=== PATIENT | male | born 1970 | race Caucasian/White ===

== ENCOUNTER 2016-06-25 17:07 | Emergency (ER) | payer OTHER, BC, MEDICAID ==
--- NOTE | 2016-06-25 17:59 | UCPHY ---
[id number]/21/17 17:43 HPI/ROS: CHIEF COMPLAINT: Erythema to right infraorbital and nasal region HISTORY OF PRESENT ILLNESS: 46-year-old developmentally delayed male in the urgent care with his care provider who provides history. She describes 3 days of progressive erythema from what started as a central lesion in the right infraorbital/right lateral nasal area. The eye itself has remained unremarkable with no injection and no discharge. No apparent pain with extraocular movements and no proptosis that the care provider has noted. No other skin lesions to the face have been seen. PHYSICAL EXAM (Prior to examination, patient consented to physical exam, hands were washed and my usual and customary physical exam procedures followed) 1) GENERAL: Well-developed, well-nourished, alert and oriented. Appears to be in no acute distress. 2) HEAD: Normocephalic 3) HEENT: sclera anicteric. No injection. No proptosis. No abnormal gaze or apparent pain with extraocular movement 4) LUNGS: Breathing comfortably. 5) SKIN: in the right infraorbital/right lateral nasal region the patient has a central for regular lesion with surrounding erythema and induration. It does not extend onto the inferior lid. No other skin lesions or vesicles are seen. There is no dermatomal distribution of the lesions. Facial features are symmetrical. No evidence of facial palsy (Manjula,Juanita Regina) Constitutional: Initial Vital Signs Temperature (C) 36.3 C 06/25/16 17:56 Heart Rate 65 06/25/16 17:56 Respiratory Rate 16 06/25/16 17:56 Blood Pressure 103/69 06/25/16 17:56 O2 Sat (%) 97 06/25/16 17:56 O2 Delivery Mode Room Air Allergies/Adverse Reactions: caffeine Allergy (Unknown, Verified 06/25/16 17:53) chocolate Allergy (Uncoded 06/25/16 17:53) Home Medications: Medication Instructions Recorded Levothyroxin Daily 50 mcg 03/31/12 Multivitamins [Multivitamin (OTC)] 1 each PO DAILY 03/31/12 Claritin 06/23/15 Vitamin D3 (OTC) 06/23/15 Cephalexin [Keflex] 500 mg PO QID 10 Days 06/25/16 Sulfamethox/Tmp 800/160 mg 1 tab PO BID@1000,2200 10 Days 06/25/16 [Bactrim Ds] ED Images - Head Head Front/Back: 1 - erythema with central lesion MDM/Departure - MDM Medications Given: Discontinued Medications Cephalexin (Keflex 500 Mg Prepack#4) 1 btl TAKEHOME EDNOW ONE Stop: 06/25/16 18:02 Last Admin: 06/25/16 18:07 Dose: 1 btl Trimethoprim/Sulfamethoxazole (Bactrim Ds Prepack#2) 1 btl TAKEHOME EDNOW ONE Stop: 06/25/16 18:02 Last Admin: 06/25/16 18:08 Dose: 1 btl ED Course/Re-evaluation: I do not think this patient has Vieyra's palsy, orbital or periorbital cellulitis. He does have evidence of infraorbital and right cheek cellulitis. He is started on dual therapy of Bactrim and Keflex. Recommended warm compresses and my usual and customary cellulitis precautions have been provided (Juanita Fair) Urgent Care PA supervision Physician documentation: The patient was evaluated and managed by the physician customer care assistant. My co- signature indicates that I have reviewed this chart and I agree with the findings and plan of care as documented. I am the secondary supervising physician. (Delroy Pelaez) - Depart Disposition: Home, Routine, Self-Care Clinical Impression: Facial cellulitis Condition: Good Instructions: Cellulitis (ED) Additional Instructions: Return to the Urgent Care go to the ER if Ishmael develops more facial swelling, more skin lesions, pain with eye movement, or any other symptoms that concern you. Place warm compresses on the area 5 times per day. Prescriptions: Sulfamethox/Tmp 800/160 mg [Bactrim Ds] 1 tab PO BID@1000,2200 10 Days Cephalexin [Keflex] 500 mg PO QID 10 Days Referrals: Monty Fregoso MD [Primary Care Provider] - 2-3 days, call for appt. - PQRS PQRS Measurement: n/a (Juanita Fair)
[2016-06-25 18:01] VITALS: BP 103/69; PULSE 65; RESP 16; TEMP 97.3; O2SAT 97
[2016-06-25] MEDS ORDERED: CEPHALEXIN 500MG PREPACK#4 BTL TAKEHOME ONE (18:01)
[2016-06-25] MEDS ORDERED: SULFAMET/TMP DS PREPACK#2 BTL TAKEHOME ONE (18:01)
== END 2016-06-25 18:11 | disposition home or self-care (01) ==
LOC: CED 17:07
DX: L03.211 Cellulitis of face (principal)
CPT/HCPCS: G0463-PO